=== PATIENT | male | born 1975 | race Caucasian/White ===

== ENCOUNTER 2021-04-02 16:46 | Emergency (ER) | payer OTHER ==
[~2021-04-02] VITALS: Ht 177.8 cm; Wt 95.4 kg
[2021-04-02 16:55] VITALS: BP 137/87
--- NOTE | 2021-04-02 17:39 | RAD ---
EXAM: AP, lateral, oblique and sunrise views of the right knee. DATE: 04/02/2021 5:10 PM INDICATION: Reason: INJURY TO KNEE WHILE SKIING / Spl. Instructions: / History: COMPARISON: No Prior FINDINGS: No acute fracture or dislocation. No joint effusion. Joint spaces are preserved without significant degenerative/proliferative change. Neutral patellar tracking. IMPRESSION: No acute fracture or dislocation. Electronically signed by: Wilder Cox MD (04/02/2021 5:36 PM) TEDDY
--- NOTE | 2021-04-02 17:42 | PHYS DOC ---
Past History Past Surgical History: Other Additional Past Surgical Histo: VASCECTOMY Alcohol Use: None General Adult EDM: Chief Complaint: KNEE INJURY HPI: HPI: 45-year-old male presents with right medial knee pain. [place] had [place] ski when they both fell. The patient's foot got twisted in an odd manner up underneath him and put extra strain on the medial part of the knee. The patient is able to stand and walk on it. It feels like it might give way when he pivots. He decided he should have it evaluated. He denies numbness or tingling. He has no other injuries at this time. Review of Systems: Review of Systems: Constitutional: Denies fever or chills Eyes: Denies change in visual acuity HENT: Denies nasal congestion or sore throat Respiratory: Denies cough or shortness of breath Cardiovascular: Denies chest pain or edema GI: Denies abdominal pain, nausea, vomiting, bloody stools or diarrhea : Denies dysuria Musculoskeletal: Right medial knee pain Integument: Denies rash Neurologic: Denies headache, focal weakness or sensory changes Endocrine: Denies polyuria or polydipsia Lymphatic: Denies swollen glands Psychiatric: Denies depression or anxiety Allergies: Allergies: Allergies Coded Allergies Type Severity Reaction Last Updated Verified No Known Drug Allergies 04/02/21 No Physical Exam: PE: Constitutional: Well developed, well nourished, no acute distress, non-toxic appearance. [] HENT: Normocephalic, atraumatic, bilateral external ears normal, oropharynx moist, no oral exudates, nose normal. [] Eyes: PERRLA, EOMI, conjunctiva normal, no discharge. [] Neck: Normal range of motion, no tenderness, supple, no stridor. [] Cardiovascular:Heart rate regular rhythm, no murmur [] Lungs & Thorax: Bilateral breath sounds clear to auscultation [] Abdomen: Bowel sounds normal, soft, no tenderness, no masses, no pulsatile masses. [] Skin: Warm, dry, no erythema, no rash. [] Back: No tenderness, no CVA tenderness. [] Extremities: Right ACL and PCL with solid end feel. Pain and mild gapping of the medial knee with valgus and varus stress. Mild to moderate swelling, no ecchymosis or obvious deformity. [] Neurologic: Alert and oriented X 3, normal motor function, normal sensory function, no focal deficits noted. [] Psychologic: Affect normal, judgement normal, mood normal. [] Current Patient Data: Vital Signs: Vital Signs Date Time Temp Pulse Resp B/P (MAP) Pulse Ox O2 Delivery O2 Flow Rate FiO2 04/02/21 16:55 99.1 83 20 137/87 (104) 98 Room Air EKG: EKG: [] Radiology/Procedures: Radiology/Procedures: [] Impressions: EXAM: AP, lateral, oblique and sunrise views of the right knee. DATE: 04/02/2021 5:10 PM INDICATION: Reason: INJURY TO KNEE WHILE SKIING / Spl. Instructions: / History: COMPARISON: No Prior FINDINGS: No acute fracture or dislocation. No joint effusion. Joint spaces are preserved without significant degenerative/proliferative change. Neutral patellar track ing. IMPRESSION: No acute fracture or dislocation. Electronically signed by: Wilder Carrillo MD (04/02/2021 5:36 PM) [facility] DICTATED AND SIGNED BY: WILDER CARRILLO MD DATE: 04/02/21 1735 CC: MAGED ROMERO DO; JANETT SCHULTE APRN; BABATUNDE WILKERSON DO, M[facility] ~MTH0 0 Heart Score: C/O Chest Pain: N/A Risk Factors: Risk Factors: DM, Current or recent (<one month) smoker, HTN, HLP, family history of CAD, obesity. Risk Scores: Score 0 - 3: 2.5% MACE over next 6 weeks - Discharge Home Score 4 - 6: 20.3% MACE over next 6 weeks - Admit for Clinical Observation Score 7 - 10: 72.7% MACE over next 6 weeks - Early Invasive Strategies Course & Med Decision Making: Course & Med Decision Making Pertinent Labs and Imaging studies reviewed. (See chart for details) Patient's x-rays negative for fracture. Based on my exam, I believe the patient has a strain of the right medial collateral ligament. I have advised supportive care and RICE therapy. He is stable for discharge at this time. [] Dragon Disclaimer: Dragon Disclaimer: This electronic medical record was generated, in whole or in part, using a voice recognition dictation system. Departure Departure: Impression: Primary Impression: Sprain of medial collateral ligament of right knee, initial encounter Disposition: HOME / SELF CARE / HOMELESS Condition: STABLE Referrals: BABATUNDE WILKERSON DO, MPH (PCP) Patient Instructions: Medial Collateral Knee Ligament Sprain with Phase I Rehab-Sports[facility] MAGED ROMERO DO Apr 02, 2021 17:42
== END 2021-04-02 17:46 | disposition home or self-care (01) ==
LOC: ER 16:46
DX: S83.411A Sprain of medial collateral ligament of right knee, initial encounter (principal); X50.1XXA Overexertion from prolonged static or awkward postures, initial encounter; Y93.89 Activity, other specified; Y92.89 Other specified places as the place of occurrence of the external cause; Y99.8 Other external cause status
CPT/HCPCS: 73564; 99283-25